=== PATIENT | female | born 1990 | race Caucasian/White ===

== ENCOUNTER 2018-12-28 21:09 | Observation (INO) ==
[~2018-12-28 21:09] MED LIST: Ringers Solution, Lactated 1,000 ML ONE
[2018-12-28] MEDS ORDERED: Betamethasone Acet/SodPhos 30 MG/5 ML VIAL IM SCH (21:15)
[2018-12-28] MEDS ORDERED: Ringers Solution, Lactated 1,000 ML IVC SCH (21:15)
[2018-12-28 21:23] LABS: Basophils % 0.4 %; Eosinophils # 0.1 K/mcL (0.0-0.6); Eosinophils % 1.2 %; Hematocrit 32.6 % (35.3-44.9); Hemoglobin 11.2 g/dL (11.5-15.4); Immature Granulocytes % 0.3 % (0-4); Lymphocytes # 2.4 K/mcL (0.6-4.6); Lymphocytes % 26.6 %; Mean Corpuscular HGB Conc 34.4 g/dL (31.6-35.5); Mean Corpuscular Hemoglobin 31.2 pg (28.0-33.3); Mean Corpuscular Volume 90.8 fL (83.0-100.0); Mean Platelet Volume 10.4 fL (9.4-12.4); Monocytes # 0.6 K/mcL (0.0-1.3); Neutrophils # 5.8 K/mcL (1.6-8.9); Platelet Count 221 K/mcL (140-400); Red Blood Count 3.59 M/mcL (3.82-4.97); Red Cell Distribution Width 12.5 % (11.5-14.5); Segmented Neutrophils % 64.5 %
[2018-12-28 22:03] LABS: Bilirubin,Urine Negative (Negative); Blood,Urine Negative (Negative); Clarity,Urine Cloudy (Clear); Color,Urine Yellow (Yellow); Glucose,Urine (UA) Normal (Normal); Ketones,Urine Negative (Negative); Leukocyte Esterase,Urine Moderate (Negative); Nitrite,Urine Negative (Negative); PH,Urine 7.5 pH Units (5.0-8.0); Protein,Urine Negative (Neg-Trace); Specific Gravity,Urine < 1.005 (1.010-1.025); Urobilinogen,Urine Normal (Normal)
[2018-12-28 22:04] LABS: Bacteria,Urine Few per hpf (None-Few); Hyaline Casts,Urine None Seen per lpf (None-Few); Squamous Epithelial Cell,Urine Many per lpf (None-Few)
[2018-12-28 22:11] LABS: RBC,Urine 0-3 per hpf (0-3)
[2018-12-28 22:13] LABS: Amphetamine Screen,Urine Negative ng/mL (Cutoff=1000); Barbiturate Screen,Urine Negative ng/mL (Cutoff=200); Benzodiazepines Screen,Urine Negative ng/mL (Cutoff=200); Cannabinoid Screen,Urine Negative ng/mL (Cutoff = 50); Cocaine Screen,Urine Negative ng/mL (Cutoff= 300); Opiate Screen,Urine Negative ng/mL (Cutoff=300); Phencyclidine Screen,Urine Negative ng/mL (Cutoff=25)
[2018-12-28 22:40] LABS: Albumin 3.8 g/dL (3.5-5.7); Albumin/Globulin Ratio 1.6 (1.1-2.2); Bilirubin,Indirect 0.2 mg/dL (0.0-1.2); Bilirubin,Total 0.2 mg/dL (0.3-1.0); Globulin 2.4 g/dL (2.4-3.5); Total Protein 6.2 g/dL (6.4-8.9)
--- NOTE | 2018-12-28 23:44 | OB/GYN Progress Note ---
Date of Encounter: 12/28/18 Time of Encounter: 23:42 - Assessment and Plan (1) 24 weeks gestation of Current Visit: Yes Status: Acute (2) Abdominal pain during in second trimester Current Visit: Yes Status: Acute On arrival due to severe pain cervix was checked and was closed on admission. Dr. Falk consults having came in to evaluate patient. Labs and UA ordered. Fluid bolus given. Betamethasone course initiated in case of labor. Labs negative, patient states pain has improved and is gone now, discussed resolution of pain with Dr. Falk, discharged home with labor and when to return to triage precautions. Advised patient to return in 24 hours for second betamethasone injection. Patient verbalizes understanding Subjective - Subjective Interval history: 24+0 weeks gestation presents to triage with sudden onset of severe abdominal pain. Patient states 30 minutes prior to arrival in triage she had heartburn and nausea which quickly turn into severe lower abdominal pain. Since states pain is wavelike and comes and goes. On arrival to triage patient was moaning in pain and bearing down in wheelchair. Reports good movement, denies vaginal bleeding or leaking of fluid Patient has received all care in [place], recently moved back to [place] and has not established care with provider in [place]. Patient states has been uncomplicated with unremarkable anatomy scan showing normal anatomy. Antepartum ROS: movement normal, contractions, no loss of fluid, no vaginal bleeding Objective - Vital Signs Vital Signs: Intake and Output 12/28/18 12/28/18 12/28/18 07:59 15:59 23:59 Other: Weight 58.06 kg Patient Weight 12/28/18 23:59 Weight 58.06 kg - Exam FHR: auscultation normal FHR comments: Baseline 150 and appropriate for gestational age Abdomen: Present: soft, gravid Cervical dilation: Inner OS Closed/thick/high - Labs Labs: Abnormal lab results RBC 3.59 M/mcL (3.82-4.97) L 12/28/18 21:05 Hgb 11.2 g/dL (11.5-15.4) L 12/28/18 21:05 Hct 32.6 % (35.3-44.9) L 12/28/18 21:05 0.2 mg/dL (0.3-1.0) L 12/28/18 21:05 6.2 g/dL (6.4-8.9) L 12/28/18 21:05 Cloudy (Clear) A 12/28/18 21:46 Ur Specific Kelly < 1.005 (1.010-1.025) L 12/28/18 21:46 Ur Leukocyte Esterase Moderate (Negative) H 12/28/18 21:46 5-15 per hpf (0-3) H 12/28/18 21:46 Ur Squamous Epith Cells Many per lpf (None-Few) H 12/28/18 21:46 Ur Culture Indicated? YES (NO) A 12/28/18 21:46
== END 2018-12-28 23:46 | disposition home or self-care (01) ==
LOC: 1NENULAB
PROVIDERS: ADMIT Advanced Practice Midwife; ATTEND Advanced Practice Midwife